=== PATIENT | female | born 1950 | race Caucasian/White ===

== ENCOUNTER 2016-06-06 10:42 | Emergency (ER) | payer OTHER, MEDICARE ==
[2016-06-06 11:02] VITALS: RESP 18; TEMP 96.5
--- NOTE | 2016-06-07 06:58 | PDOC ---
General Adult HPI - General Chief Complaint: General Medical Stated Complaint: BODY ACHES/FEVER Date Seen by Provider: 06/06/16 Time Seen by Provider: 11:15 Source: POSITIVE: Patient, Other (daughter) Exam Limitations: POSITIVE: No limitations Nurse's Notes Reviewed & Considered: Yes - History of Present Illness Initial Comment: The patient is a 65-year-old female. She is brought to the emergency room by her daughter with a 2 day history of fever, myalgia, headache. Patient has a history of insulin-dependent type II diabetes mellitus, and hypertension. History of hypothyroidism. Have you received a tetanus shot in the past 10 years?: Unknown Body Location Affected: REPORTS: Other (As above) Timing: REPORTS: Constant Duration: >24 hours (Approximately 2 days) Severity: Moderate Quality: REPORTS: Other (Myalgia) Context: DENIES: None, Sitting, Standing, Activity, Emotional stress, Coughing, Recent Trauma, Recent Surgery, Sleep, Rest, Lifting, Turning, Bending, Fall, Near Fall, Other Modifying Factors: worse with: Nothing, Analgesics, Antacids, Breathing, Coughing, Defecating, Vomiting, Eating, Exercise, Lying down, Urinating, Palpation, Movement, Rest, Upright Position, Walking, Remaining Still, Other Similar Symptoms Previously: No Recent Care Received: REPORTS: Denies Any Prior Injuries Related to Current Complaint?: No - Patient Home Medications Home Medications: Home Medications Aspirin [Baby Aspirin] 1 tab ORAL QD tab 09/16/10 Scopolamine Hydrobromide [Transderm-Scop] 1 patch TRANSDERM every 72 hours PRN # 1 patch 11/02/13 Insulin Detemir [Levemir Flextouch] 60 unit SUBCUT QHS #5 unit 06/26/15 Terconazole [Terazol 7] 1 appful VAGINAL QHS #1 tube 08/09/15 Blood Sugar Diagnostic [Freestyle Lite Test Strips] 1 strip MC BID #100 strip Citalopram Hydrobromide [Celexa] 60 mg PO DAILY #45 03/10/16 Levothyroxine Sodium [Synthroid] 1 tab ORAL QD #90 tab 03/10/16 Liraglutide [Victoza 3-Cornell] 1.8 mg SUBCUT DAILY #5 ml 03/10/16 Montelukast Sodium [Singulair] 1 tab ORAL QD #90 tab 03/10/16 Olmesartan Medoxomil [Benicar] 1 tab ORAL QD #90 tab 03/10/16 Pen Needle, Diabetic [Insulin Pen Needle] 1 each SUBCUT 2-3XD #100 units Insulin Degludec [Tresiba Flextouch U-200] 100 unit SQ QHS #9 each 05/27/16 Rosuvastatin Calcium [Crestor] 1 tab ORAL QD #90 tab 06/02/16 Oseltamivir Phosphate [Tamiflu] 75 mg PO Q12H #10 capsule 06/06/16 - Patient Allergies Allergies/Adverse Reactions: Allergies Allergy/AdvReac Type Severity Reaction Status Date / Time Sulfa (Sulfonamide Allergy Mild numb and Verified 06/06/16 10:44 Antibiotics) tingling pneumococcal 23-valent Allergy SWELLING Verified 06/06/16 10:44 polysacchari [From Pneumovax 23] Past Medical History - heen HEENT History: Denies History Cardiovascular History: Hypertension, Hyperlipidemia Respiratory History: Denies History Gastrointestinal History: GERD Genitourinary History: Recurrent UTI Additional Genitourinary History: YEARS Endocrine History: Type 2 Diabetes (insulin) Additional Endocrine History: DOES NOT CHECK BLOOD SUGARSDIABETIC NERUOPATHY Musculoskeletal History: Arthritis, Back Pain, Back Injury Prosthesis or Implant: Yes (LEFT ANKLE) Additional Musculoskeletal History: OSTEOPENIA Neurological History: Denies History Blood Disorders: Denies History Psychiatric History: Depression, Anxiety Disorders History of Sexually Transmitted Diseases: No Female Reproductive History: Denies History Obstetrical History: Denies History Cancer History: Breast, Skin Cancer Treatment / Date(s) of Treatment: RADIATION AND CHEMO In Past Year Been Physically Harmed or Verbally Threatened: No History of MDRO: No History of Other Communicable Diseases: No Tobacco Use: Never Smoker Alcohol Use: Rarely Substance Use Type: None Previous Surgical History: Yes Type / Date of Surgery: CALISTA/ COLONOSCOPY/ HEMORRHOID SX/ LAMI/ LEFT BREAST LUMPECTOMY/ RIGHT FOOT BONE SPUR/L ANKLE ORIF/ TONSILLECTOMY/ TUBAL UMBILICAL HERNIA Anesthesia Reactions: Yes (PONV) Malignant Hyperthermia: No Past Medical History Reviewed: Reviewed - No Changes ROS - Limitations ROS Limitations: No Limitations Constitution: REPORTS: Chills, Fever Cardiovascular: REPORTS: Denies Cardiac Symptoms Respiratory: REPORTS: Denies Resp Symptoms Neurological: REPORTS: Denies Neuro Symptoms Gastrointestinal: REPORTS: Denies GI Symptoms Endocrine: REPORTS: Denies Symptoms Musculoskeletal: REPORTS: Other (Myalgia) Genitourinary: REPORTS: Denies Symptoms Eyes: REPORTS: Denies Symptoms ENT: REPORTS: Denies Symptoms Lympathic: REPORTS: Denies Lympathic Symptoms Immunologic: POSITIVE: Denies Symptoms Psychiatric: POSITIVE: Denies Psych Symptoms General Adult Exam - General Appearance General Appearance: POSITIVE: Alert, Cooperative, No Acute Distress, No Evidence of Trauma - HEENT HEENT: POSITIVE: Head Inspection Nml, Eyes Inspection Nml, Ears Inspection Nml, Nose Inspection Nml, Oral/Dental Inspect. Nml, Pharynx Inspect. Nml, PERRL, EOMI - Pupils Pupil Size: 4 mm: Bilateral (PERRLA) - Neck Neck: POSITIVE: Normal Inspection, Thyroid Normal - Respiratory Respiratory: POSITIVE: No Respiratory Distress, Breath Sounds Normal, Chest Non- Tender - Cardiovascular Cardiovascular: POSITIVE: Regular Rate & Rhythm, No Murmur, No Gallop, PMI Normal Peripheral Pulses: Radial (R): 2+, Radial (L): 2+ - Abdomen Abdomen: Soft: (All Quadrants), Normal Bowel Sounds: (All Quadrants), Denies Tenderness: (All Quadrants), No Splenomegaly: (All Quadrants), No Hepatomegaly: (All Quadrants), No Guarding: (All Quadrants), No Rebound: (All Quadrants), No Palpable Pulse: (All Quadrants), No Palpabale Mass: (All Quadrants), No Distention: (All Quadrants), No Rigidity: (All Quadrants) - Back Back: POSITIVE: Normal Inspection - Skin Skin: POSITIVE: Normal Color, Warm, Dry, No Rash - Extremities Extremity: Non-Tender: (All Extremities), Normal ROM: (All Extremities), Normal Inspection: (All Extremities) - Neurological / Psychological Neurological: POSITIVE: Oriented X3, surgery aid Normal As Tested, Motor Normal, Sensation Normal, 5, 6 General Adult Progress - Results Reviewed by me Lab Results Reviewed: Yes (influenza A positive) - Patient's Progress Pain Medication Addressed: POSITIVE: Yes (Recommended Advil or Tylenol) School/Work Release Addressed: POSITIVE: Not Applicable Re-Examine Time: 11:40 Status: POSITIVE: Unchanged - Consult Counseled: POSITIVE: Patient, RE: Lab Results, RE: DX, RE: Need for F/U Patient Care Time - Estimated PCT Patient Care Time (In Minutes): 18 Vital Signs - VS Reviewed Vital Signs Reviewed: Yes Discharge Clinical Impression: Influenza A Discharge Disposition: Discharged to Home Condition: Fair Prescriptions / Orders: Oseltamivir Phosphate [Tamiflu] 75 mg PO Q12H #10 capsule Patient Instructions Given at Discharge: Influenza (ED) Additional Instructions: Rest. Wash hands several times a day. Avoid coughing and sneezing around others, avoid sharing glasses or kissing. Tamiflu, one every 12 hours for 5 days. Return here anytime if condition worsens. Follow-up with your primary care provider. Follow Up With: JAYDEN LARA [Primary Care Provider] - (Instructions and medications as above. Return here as necessary.)
== END 2016-06-06 11:42 | disposition home or self-care (01) ==
LOC: ER 10:42
DX: J09.X2 Influenza due to identified novel influenza A virus with other respiratory manifestations (principal); R51 Headache; E11.9 Type 2 diabetes mellitus without complications; Z79.4 Long term (current) use of insulin
CPT/HCPCS: 87804; 99282; 99283

== ENCOUNTER → 2016-06-18 | Outpatient (CLI) | payer OTHER, MEDICARE | LOC: MMPC 11:11 | PROVIDERS: ATTEND Internal Medicine | DX: E11.9 Type 2 diabetes mellitus without complications (principal) | CPT/HCPCS: 99213; G0463 ==

== ENCOUNTER → 2016-08-06 | Outpatient (CLI) | payer OTHER, MEDICARE | LOC: MMPC 11:11 | PROVIDERS: ATTEND Nurse Practitioner | DX: M79.1 Myalgia (principal) | CPT/HCPCS: 99213; G0463 ==

== ENCOUNTER → 2016-08-17 | Outpatient (CLI) | payer OTHER, MEDICARE | LOC: MMPC 09:00 | PROVIDERS: ATTEND Nurse Practitioner Family | DX: N90.89 Other specified noninflammatory disorders of vulva and perineum (principal); N94.10 Unspecified dyspareunia; N39.3 Stress incontinence (female) (male) | CPT/HCPCS: 99214; G0463 ==

== ENCOUNTER → 2016-09-28 | Outpatient (CLI) | payer OTHER, MEDICARE ==
[2016-09-28 12:09] LABS: HEMOGLOBIN A1C 8.93 % (4.2-6.0)
[2016-09-28 12:47] LABS: CREATININE, URINE 162.8 MG/DL (15-500)
== END ==
LOC: LAB 11:43
PROVIDERS: ATTEND Internal Medicine
DX: E11.9 Type 2 diabetes mellitus without complications (principal); Z79.4 Long term (current) use of insulin
CPT/HCPCS: 36415; 82043; 83036

== ENCOUNTER → 2016-10-01 | Outpatient (CLI) | payer OTHER, MEDICARE | LOC: MMPC 10:00 | PROVIDERS: ATTEND Internal Medicine | DX: E11.9 Type 2 diabetes mellitus without complications (principal); E03.9 Hypothyroidism, unspecified; E78.5 Hyperlipidemia, unspecified | CPT/HCPCS: 99214; G0463 ==

== ENCOUNTER → 2016-10-29 | Outpatient (CLI) | payer OTHER, MEDICARE | LOC: LAB 10:01 | PROVIDERS: ATTEND Nurse Practitioner Family | DX: E11.9 Type 2 diabetes mellitus without complications (principal); E66.9 Obesity, unspecified; F32.5 Major depressive disorder, single episode, in full remission; Z85.3 Personal history of malignant neoplasm of breast | CPT/HCPCS: 36415; 86304 ==

== ENCOUNTER → 2016-10-29 | Outpatient (CLI) | payer OTHER, MEDICARE | LOC: MOB LAB 09:21 | PROVIDERS: ATTEND Nurse Practitioner Family | DX: L29.8 Other pruritus (principal); E11.9 Type 2 diabetes mellitus without complications; Z79.4 Long term (current) use of insulin; E66.9 Obesity, unspecified; F32.5 Major depressive disorder, single episode, in full remission; Z85.3 Personal history of malignant neoplasm of breast | CPT/HCPCS: 87480; 87510; 87660; 99213; G0463; 99214 ==